=== PATIENT | female | born 1955 | race Caucasian/White ===

== ENCOUNTER 2019-10-31 13:30 | Outpatient (CLI) | payer OTHER, SELFPAY ==
--- NOTE | ~2019-10-31 | DEXA_ITS ---
Bone Density Report Name: Christine Adame Age: 64 Sex: Female Ethnicity: White Date of : 1955 Indication: osteopenia; height loss; Referring Provider: NAVIN TRINIDAD Study: Bone densitometry was performed. Exam Date: October 31, 2019 Accession number: [id number] Bone Density: Region BMD T-score Z-score Classification AP Spine (L1-L4) 0.917 -1.2 0.4 Osteopenia Femoral Neck (Left) 0.661 -1.7 -0.3 Osteopenia Total Hip (Left) 0.778 -1.3 -0.2 Osteopenia Total Hip Bilateral Avg 0.774 -1.4 -0.3 Osteopenia Femoral Neck (Right) 0.645 -1.8 -0.4 Osteopenia Total Hip (Right) 0.770 -1.4 -0.3 Osteopenia World Health Organization criteria for BMD impression classify patients as: Normal (T-score at or above -1.0), Osteopenia (T-score between -1.0 and -2.5), or Osteoporosis (T-score at or below -2.5). 10-year Fracture Risk(1): Major Osteoporotic Fracture 9.1% Hip Fracture 1.1% Reported Risk Factors: [place] (), Neck BMD=0.645, BMI=22.5 (1) FRAX(R) Version 3.08. Fracture probability calculated for an untreated patient. Fracture probability may be lower if the patient has received treatment. Previous Exams: Region Exam Age BMD T-score BMD Change BMD Change Date g/cm2 vs Baseline vs Previous AP Spine(L1-L4) 10/31/2019 64 0.917 -1.2 -0.086(-8.5%)# 0.007(0.8%) 06/05/2017 61 0.910 -1.2 -0.093(-9.3%)# 0.013(1.4%) 03/28/2015 59 0.897 -1.4 -0.106(-10.6%) -0.011(-1.2%)# 01/19/2013 57 0.908 -1.3 -0.095(-9.4%)# -0.095(-9.4%)# 08/29/2009 53 1.003 -0.4 Total Hip(Left) 10/31/2019 64 0.778 -1.3 -0.070(-8.2%)# -0.039(-4.8%)* 06/05/2017 61 0.817 -1.0 -0.031(-3.6%)# 0.042(5.4%)* 03/28/2015 59 0.776 -1.4 -0.072(-8.5%)# -0.027(-3.4%)# 01/19/2013 57 0.803 -1.1 -0.045(-5.3%)# -0.045(-5.3%)# 08/29/2009 53 0.848 -0.8 Total Hip(Right) 10/31/2019 64 0.770 -1.4 -0.079(-9.4%)# -0.026(-3.3%) 06/05/2017 61 0.796 -1.2 -0.053(-6.3%)# -0.023(-2.9%) 03/28/2015 59 0.820 -1.0 -0.030(-3.5%)# -0.019(-2.3%)# 01/19/2013 57 0.839 -0.8 -0.011(-1.2%)# -0.011(-1.2%)# 08/29/2009 53 0.850 -0.8 *Denotes significance at 95% confidence level, LSC for AP Spine = 0.022 g/cm2, LSC for Total Hip = 0.027 g/cm2 Clinical Information Provided by Patient: Has used the following medications: Vitamin D Patient maximum height was 66.75 Menopause Age: 53 Onset of menses at age 15 Number of children 0
== END 2019-10-31 13:31 | disposition home or self-care (01) ==
LOC: ANHIMG 13:33
PROVIDERS: PCP Family Medicine; Visit Provider Family Medicine
DX: M85.89 Other specified disorders of bone density and structure, multiple sites (principal); Z78.0 Asymptomatic menopausal state
CPT/HCPCS: 77080